=== PATIENT | female | born 1985 | race Caucasian/White ===

== ENCOUNTER 2023-08-07 08:11 | Emergency (ER) | payer OTHER, SELFPAY ==
[2023-08-07 08:19] VITALS: BP 107/92; PULSE 104; TEMP 36.6; O2SAT 100
--- NOTE | 2023-08-07 08:23 | ED_ITS ---
HPI - Dental/Oral General Chief complaint: Dental/Oral Stated complaint: DENTAL PAIN Time Seen by Provider: 08/07/23 08:14 Source: patient Mode of arrival: walk-in Limitations: no limitations History of Present Illness HPI Narrative: Patient presents ED complaining of right upper dental pain. She states that she was just deployed over in [place] and just got back today. She says she was instructed by her physician to come directly to the emergency room to get antibiotics and pain medicine. She states she has a dental appointment on Saturday but they wanted her on antibiotics before they see her. She has a history of a filling in that tooth and she bit down on something hard and it broke part of her tooth and she has had pain in the right jaw since. No fevers no difficulties handling secretions no tongue swelling. Patient's slightly anxious and says she has not slept much lately because of traveling back from [place]. Otherwise no acute distress alert and oriented x 3 Related Data Previous Rx's ?Medication ?Instructions ?Recorded oxycodone-acetaminophen 5 mg-325 1 tab PO Q6H #10 tabs 08/07/23 mg tablet (Percocet) penicillin V potassium 500 mg 500 mg PO Q6H 10 days #40 tabs 08/07/23 tablet Allergies Allergy/AdvReac Type Severity Reaction Status Date / Time morphine Allergy Mild Verified 08/07/23 08:18 Review of Systems ROS Status of ROS 10 or more systems reviewed and unremark able except as noted in history and below Exam Narrative Exam Narrative: General: alert, no acute distress Cardiovascular: regular rate and rhythm, normal peripheral perfusion. Respiratory: Lungs CTA, respirations non labored. Extremities: no deformity, no trauma. Neurological: oriented x 4, LOC appropriate for age. Right upper molar tooth #1 shows dental caries decay and partial fracture of the tooth. No surrounding abscess no trismus no tongue elevation or swelling or drooling Constitutional Vital Signs, click to edit/add: Last Vital Signs Temp 97.8 F 08/07/23 08:19 Pulse 104 H 08/07/23 08:19 Resp 17 08/07/23 08:19 BP 107/92 H 08/07/23 08:19 Pulse Ox 100 08/07/23 08:19 Course Vital Signs Vital signs: Vital Signs Temperature 97.8 F 08/07/23 08:19 Pulse Rate 104 H 08/07/23 08:19 Respiratory Rate 17 08/07/23 08:19 Blood Pressure 107/92 H 08/07/23 08:19 Pulse Oximetry 100 08/07/23 08:19 Temperature 97.8 F 08/07/23 08:19 Pulse Rate 104 H 08/07/23 08:19 Respiratory Rate 17 08/07/23 08:19 Blood Pressure 107/92 H 08/07/23 08:19 Pulse Oximetry 100 08/07/23 08:19 MDM - Dental/Oral MDM Narrative Medical decision making narrative: Patient will be sent home on antibiotics and pain medication. Please follow-up with dentist on Saturday as scheduled. Return to ED if anything worsens. Differential Diagnosis Differential diagnosis: Likely dental caries, toothache, dental abscess and fracture of tooth Discharge Plan Discharge Stand Alone Forms: Portal Instructions Chief Complaint: Dental/Oral Clinical Impression: Toothache Patient Disposition: Home, Self-Care Time of Disposition Decision: 08:22 Condition: Good Mode of Transportation: Private Vehicle Prescriptions / Home Meds: New penicillin V potassium 500 mg tablet 500 mg PO Q6H 10 Days Qty: 40 0RF oxycodone-acetaminophen [Percocet] 5-325 mg tablet 1 tab PO Q6H Qty: 10 0RF Print Language: [place] Instructions: Toothache (ED)
== END 2023-08-07 08:42 | disposition home or self-care (01) ==
LOC: ER 08:35
PROVIDERS: Emergency Provider Emergency Medicine
DX: K08.89 Other specified disorders of teeth and supporting structures (principal)
CPT/HCPCS: 99283